=== PATIENT | female | born 1990 | race American Indian/Alaskan Native ===

== ENCOUNTER 2020-07-02 20:12 | Emergency (ER) | payer MEDICAID ==
[~2020-07-02] VITALS: Ht 170.2 cm; Wt 83.0 kg
[2020-07-02] MEDS ORDERED: pantoprazole 40 MG vial IV ONE (21:15)
[2020-07-02] MEDS ORDERED: ondansetron/PF 4mg/2ml inj IV ONE (21:15)
[2020-07-02] MEDS ORDERED: ketorolac tromethamine 15mg/ml inj. IV ONE (21:15)
[2020-07-02] MEDS ORDERED: morphine 4 MG/ML inj SYRINge IV ONE (21:15)
[2020-07-02 21:36] LABS: BASOPHILS % (AUTO) 0.5 % (0-1); EOSINOPHILS # (AUTO) 0.1 X10'3 (0-0.9); EOSINOPHILS % (AUTO) 1.4 % (0-6); HEMATOCRIT 36.4 % (35.0-45.0); HEMOGLOBIN 12.6 g/dl (12.0-16.0); LYMPHOCYTES # (AUTO) 2.5 X10'3 (1.1-4.8); LYMPHOCYTES % (AUTO) 24.9 % (21-51); MEAN CORPUSCULAR HEMOGLOBIN 29.2 PG (27.0-31.0); MEAN CORPUSCULAR HGB CONC 34.5 g/dL (33.0-36.5); MEAN CORPUSCULAR VOLUME 84.7 FL (78-98); MEAN PLATELET VOLUME 9.1 FL (7.4-10.4); MONOCYTES # (AUTO) 0.7 X10'3 (0-0.9); MONOCYTES % (AUTO) 6.5 % (2-12); NEUTROPHILS # (AUTO) 6.8 X10'3 (1.8-7.7); NEUTROPHILS % (AUTO) 66.7 % (42-75); PLATELET COUNT 200 X10'3 (140-440); RED CELL DISTRIBUTION WIDTH 12.5 % (11.5-14.5); WHITE BLOOD COUNT 10.2 X10'3 (4.5-11.0)
[2020-07-02 21:56] LABS: ALANINE AMINOTRANSFERASE 36 U/L (12-78); ALBUMIN 4.2 G/DL (3.4-5.0); ALKALINE PHOSPHATASE 86 IU/L (46-116); ANION GAP 12 (8-16); ASPARTATE AMINO TRANSFERASE 17 U/L (10-37); BILIRUBIN,TOTAL 0.6 MG/DL (0.1-1.0); BLOOD UREA NITROGEN 10 MG/DL (7-18); BUN/CREATININE RATIO 14.5 (6.6-38.0); CALCIUM 9.4 MG/DL (8.5-10.1); CHLORIDE 104 MMOL/L (99-107); CREATININE 0.69 MG/DL (0.40-0.90); GLUCOSE 95 MG/DL (70-104); POTASSIUM 3.5 MMOL/L (3.5-5.1); SODIUM 140 MMOL/L (135-145); TOTAL CARBON DIOXIDE 23.6 MMOL/L (24-32); TOTAL PROTEIN 8.3 G/DL (6.4-8.2); eGFR > 90 ML/MIN
[2020-07-02 22:13] LABS: LIPASE 166 U/L (73-393)
[2020-07-02 22:15] LABS: D-DIMER 0.56 MG/L FEU (0-0.50)
[2020-07-02] MEDS ORDERED: iohexol 350MG/ML 100ml bottle IV ONE (23:13)
[2020-07-03] MEDS ORDERED: ketorolac tromethamine 15mg/ml inj. IV ONE (00:40)
[2020-07-03] MEDS ORDERED: morphine 2 MG/ML inj. syringe IV ONE (00:45)
[2020-07-03 01:20] VITALS: BP 109/68
== END 2020-07-03 01:21 | disposition home or self-care (01) ==
LOC: ER 20:13
DX: R07.89 Other chest pain (principal); R09.1 Pleurisy; R11.2 Nausea with vomiting, unspecified; R10.13 Epigastric pain; R42 Dizziness and giddiness; Z98.890 Other specified postprocedural states
CPT/HCPCS: 36415; 71045; 71275; 74174; 80053; 83690; 83880; 84484; 85025; 85379; 93005; 96374; 96375; 96376; 99285; C9113; J1885; J2270; J2405; Q9967